=== PATIENT | female | born 1980 | race Caucasian/White ===

== ENCOUNTER 2020-12-19 19:12 | Inpatient (IN) | payer MEDICAID, SELFPAY ==
[2020-12-19] VITALS (8 sets, daily range): BP systolic 161–240; BP diastolic 109–124; PULSE 72–97; RESP 14–24; TEMP 35.7–36.8; O2SAT 97–100; BMI 34.1
--- NOTE | ~2020-12-19 | CT_ITS ---
EXAMINATION: CT abdomen pelvis w con EXAM DATE: 12/19/2020 20:45 INDICATION: Mid abdominal pain. TECHNIQUE: Spiral CT of the abdomen and pelvis was performed following intravenous injection of 100 m L Omnipaque 350. Axial, coronal and sagittal images were reviewed. The dose-length product (DLP) fo r this examination was 1110.51 mGy-cm. The exposure was tailored according to patient size (auto mA exposure control), and iterative reconstruction (ASIR) was used as additional dose reduction techniqu e. There is no prior study for comparison. FINDINGS: Extensive peripancreatic inflammation. The tail of pancreas has some lower density, more ed ematous than the other portions. Inflammation extends into the ojri hepatis. Minor pancreatic duct o f the uncinate process appears mildly dilated. Gallbladder is unremarkable. Spleen, adrenal glands, l iver are unremarkable. Portal and splenic veins are patent. Kidneys enhance symmetrically. There i s no hydronephrosis. The uterus and ovaries are unremarkable, no adnexal mass. Tubal ligation clips . The bladder is unremarkable. There is no retroperitoneal or pelvic lymphadenopathy. The appendix is normal. The stomach and small bowel are unremarkable. There is expected amount of c olonic stool. No free intraperitoneal gas. The heart is normal in size. There are no pericardial or pleural effusions. The lung bases are unremarkable. The bones are unremarkable. IMPRESSION: 1. Severe peripancreatic fat stranding, acute pancreatitis. Reviewed, dictated and finalized at location [facility]. [facility]
--- NOTE | 2020-12-19 19:20 | PC.NURSE ---
Patient states I can't pee right now I am too light headed and it hurts too bad to pee . She refuses to allow straight cath at this time.
[2020-12-19 19:48] LABS: Basophils Absolute Auto 0.1 K/mm3 (0.0-0.1); Basophils Percent Auto 0.4 % (0.2-1.2); Eosinophils Percent Auto 0.1 % (0-4.4); Hematocrit 54.4 % (37.0-47.0); Hemoglobin 18.8 g/dL (12.0-15.0); Immature Granulocyte Absolute 0.51 K/mm3 (0.00-0.031); Immature Granulocyte Percent A 2.1 % (0-0.5); Lymphocytes Absolute Auto 1.67 K/mm3 (0.9-3.2); Lymphocytes Percent Auto 6.7 % (18.3-44.2); Mean Corpuscular HGB Conc 34.6 g/dl (32-36); Mean Corpuscular Volume 92.7 fl (80-100); Mean Platelet Volume 10.4 fl (7.4-10.4); Monocytes Absolute Auto 0.9 K/mm3 (0.1-0.6); Monocytes Percent Auto 3.7 % (2.6-8.5); Neutrophils Absolute Auto 21.6 K/mm3 (1.3-6.7); Platelet Count Result 383 k/mm3 (150-375); Red Blood Count 5.87 M/mm3 (4.2-5.4); Red Cell Distribution Width 13.5 % (11.5-14.5); White Blood Count 24.9 K/mm3 (4.5-10.0)
[2020-12-19] MEDS: MORPHINE SULFATE (*CRX) 4 MG/ML INJ IV PUSH ×2 (19:52→23:32)
[2020-12-19] MEDS: ONDANSETRON INJ 4 MG/2 ML VIAL IV PUSH (19:52)
[2020-12-19] MEDS: SODIUM CHLORIDE 0.9% IV 1,000 ML 999 ML IV CONT (19:52)
--- NOTE | 2020-12-19 19:54 | PC.NURSE ---
Patient was asked to provide urine. She tells me I can't . Still refuses straight cath. Patient aware urine test is needed for proper evaluation and treatment.
[2020-12-19 19:57] LABS: INR 0.9; Prothrombin Time 12.4 Seconds (11.1-14.7)
[2020-12-19 19:58] LABS: Partial Thromboplastin Time 29.4 SECONDS (22.3-36.8)
--- NOTE | 2020-12-19 19:59 | PC.NURSE ---
EDP notified that urine has not been collected and that the patient will not allow a straight cath to be done. Orders obtained for [facility]CG to be performed so that imaging can be performed. Lab notified of add on for this lab and CT is notified that this order has been placed.
[2020-12-19 20:00] LABS: Alanine Aminotransferase 22 U/L (4-35); Albumin Level 4.7 g/dL (3.5-5.1); Alkaline Phosphatase 138 U/L (38-126); Anion Gap 11 mmol/L (8-16); Aspartate Amino Transferase 28 U/L (14-36); Bilirubin,Total 0.9 mg/dL (0.2-1.3); Blood Urea Nitrogen 14 mg/dL (7-17); Calcium 9.7 mg/dL (8.4-10.2); Carbon Dioxide 30 mmol/L (22-30); Chloride 93 mmol/L (98-107); Estimated CRCL calculation 98 ml/min; Estimated Glomerular Filt Rate > 60; Glucose 140 mg/dL (65-105); Potassium 3.7 mmol/L (3.4-5.0); Sodium 134 mmol/L (137-145)
[2020-12-19 20:10] LABS: Troponin I < 0.012 ng/mL (0.000-0.034)
--- NOTE | 2020-12-19 20:12 | PC.NURSE ---
PT STATES SHE IS UNABLE TO GIVE URINE SAMPLE AT THIS TIME. RN NOTIFIED.
[2020-12-19 20:14] LABS: Lactic Acid Reflex 1.9 mmol/L (0.7-2.1)
[2020-12-19 20:19] LABS: Lipase 4839 U/L (23-300)
[2020-12-19 20:27] LABS: Beta HCG Quantitative < 2.39 mIU/ML
--- NOTE | 2020-12-19 20:35 | PC.NURSE ---
Patient states she is still unable to provide urine. refuses straight cath
--- NOTE | 2020-12-19 20:37 | ED.GENADULT ---
HPI - General Adult General Chief complaint: Abdominal Pain Stated complaint: abd pain Time Seen by Provider: 12/19/20 19:32 History of Present Illness HPI narrative: Patient 40-year-old female who presents the emergency department with chief complaint of epigastric pain. Patient states pain is been going on for the last 24 hours states that it does radiate to her back reports she is had some nausea and vomiting with this as well. The patient denies diarrhea denies prior surgical history. Patient states the pain is worse with movement Related Data Home Medications Medication Instructions Recorded Confirmed No Home Medications 12/19/20 12/19/20 Allergies Allergy/AdvReac Type Severity Reaction Status Date / Time Penicillins Allergy Rash Verified 12/19/20 19:17 Review of Systems Review of Systems: Narrative: A 10 system review of systems was completed on the patient and is negative except for what is stated in the HPI. Nursing and ancillary documentation was reviewed. PMFSH Comments Patient denies significant past medical history Reports history of tubal ligation Social history the patient denies illicit drug use Exam Narrative: Exam Narrative: GENERAL: Well-appearing, well-nourished, and in no acute distress. HEAD: Normocephalic, atraumatic. EYES: PERRLA and EOMI. ENT: Nares clear, no rhinorrhea or epistaxis. Mucous membranes moist. NECK: Supple. CHEST: Clear to auscultation. No respiratory distress. HEART: Regular rate and rhythm. No murmur heard. Normal peripheral pulses. ABDOMEN: Soft, tender to palpation in the epigastric region, nondistended, normal active bowel sounds. EXTREMITIES: Normal range of motion. No edema. SKIN: Warm, dry, no rash. NEURO: No focal deficits. Alert and oriented x3. PSYCH: Normal mood and affect. Course Vital Signs Vital signs: Vital Signs Temperature 35.7 C L 12/19/20 19:15 Pulse Rate 97 12/19/20 19:15 Respiratory Rate 20 12/19/20 19:15 Blood Pressure 188/124 H 12/19/20 19:15 Pulse Oximetry 100 12/19/20 19:15 Temperature 36.3 C L 12/19/20 19:38 Pulse Rate 79 12/19/20 19:38 Respiratory Rate 24 H 12/19/20 19:38 Blood Pressure 211/120 H 12/19/20 19:38 Pulse Oximetry 100 12/19/20 19:38 Medical Decision Making Vital Signs Vital Signs: Vital Signs Temperature 35.7 C L 12/19/20 19:15 Pulse Rate 97 12/19/20 19:15 Respiratory Rate 20 12/19/20 19:15 Blood Pressure 188/124 H 12/19/20 19:15 Pulse Oximetry 100 12/19/20 19:15 Temperature 36.3 C L 12/19/20 19:38 Pulse Rate 79 12/19/20 19:38 Respiratory Rate 24 H 12/19/20 19:38 Blood Pressure 211/120 H 12/19/20 19:38 Pulse Oximetry 100 12/19/20 19:38 Lab Data Result diagrams: 12/19/20 19:40 12/19/20 19:40 Labs: Lab Results 12/19/20 12/19/20 12/19/20 Range/Units 19:40 19:40 19:40 WBC 24.9 H (4.5-10.0) K/mm3 RBC 5.87 H (4.2-5.4) M/mm3 Hgb 18.8 H (12.0-15.0) g/dL Hct 54.4 H (37.0-47.0) % MCV 92.7 (80-100) fl MCH 32.0 (26-34) pg MCHC 34.6 (32-36) g/dl RDW 13.5 (11.5-14.5) % Plt Count 383 H (150-375) k/mm3 MPV 10.4 (7.4-10.4) fl Immature Gran % (Auto) 2.1 H (0-0.5) % Neut % (Auto) 87.0 H (45.5-73.1) % Lymph % (Auto) 6.7 L (18.3-44.2) % [place] % (Auto) 3.7 (2.6-8.5) % Eos % (Auto) 0.1 (0-4.4) % Baso % (Auto) 0.4 (0.2-1.2) % Lymph # (Auto) 1.67 (0.9-3.2) K/mm3 [place] # (Auto) 0.9 H (0.1-0.6) K/mm3 Eos # (Auto) 0.0 (0-0.3) K/mm3 Baso # (Auto) 0.1 (0.0-0.1) K/mm3 Abs Immat Gran (auto) 0.51 H (0.00-0.031) K/mm3 Absolute Neuts (auto) 21.6 H (1.3-6.7) K/mm3 Absolute Nucleated RBC 0.0 (0.0-0.012) K/mm3 Nucleated RBC % 0.0 (0.0-0.2) % PT 12.4 (11.1-14.7) Seconds INR 0.9 APTT 29.4 (22.3-36.8) SECONDS Sodium 134 L (137-145) mmol/L Potassium 3.7 (3.4-5.0) mmol/L Chloride 93 L (98-10
--- NOTE | 2020-12-19 21:15 | PM.IMHP ---
H&P: HPI History of Present Illness Date/Time: 12/19/20 21:15. The patient was seen and evaluated in the emergency department. Chief Complaint: Abdominal pain. Narrative: This is a 40-year-old female smoker with no reported medical history who presented to the emergency department earlier today via private vehicle with complaints of abdominal pain. She reports the abrupt onset of diffuse abdominal pain sometime yesterday which she has a difficult time describing although it has been severe and constant. On exam it seems to localize more in the epigastrium and left upper quadrant. She gives no alleviating factors and reports that movement and palpation make the pain worse. It does radiate somewhat through to the back and is associated with nausea and vomiting. She was found to have acute pancreatitis and with further questioning she endorses binge drinking recently after breaking up with her boyfriend, although she does not qualify much alcohol she consumes and she was not forthcoming with how long she has been drinking. No prior history of pancreatitis. She also denies history of peptic ulcers and gallbladder disease. No known history of hypertension however her blood pressures have been in the 180s to even low 200 systolic, however they do improve with pain medication. She denies headache, vertigo, focal weakness, paresthesias, fever, chest pain, shortness of breath, hematemesis, and diarrhea. In fact she reports not having a bowel movement for the past couple of days. Review of Systems Review of Systems: Narrative: Twelve systems were reviewed with pertinent positives and negatives as per HPI. No fever or chills although she has had some sweats. She denies recent cold and flu symptoms. No known exposure to those positive for COVID-19. She denies chest pain, pleuritic pain, and palpitations. No dysuria. She has never had signs or symptoms of alcohol withdrawal. She denies harmful thoughts. No blurry vision, paresthesias, vertigo, auditory visual changes, or focal weakness. Except as documented, all other systems were reviewed and are negative. [facility] Past Medical History Medical History (Updated 12/19/20 @ 22:47 by Anali Gannon PA-C) Tobacco dependence Surgical History Surgical History (Updated 12/19/20 @ 22:41 by Anali Gannon PA-C) History of tubal ligation Family History Family History Other Patient denies significant medical history Social History Social History (Updated 12/19/20 @ 22:43 by Anali Gannon PA-C) Social History: The patient lives in [place], [place]. She has been staying in a motel around the hospital here for the last several days, at least from what I can gather. She has at least 1 child that she mentioned. I believe she said that she was unemployed. She smokes a pack of cigarettes per day. She has been binge drinking but does not qualify or quantify as detailed above. Denies illicit substance use. She designates her mother as her surrogate decision maker and she wishes to be a full code. Meds Home Medications and Allergies Home Medications Medication Instructions Recorded Confirmed Type No Home Medications 12/19/20 12/19/20 History Allergies Allergy/AdvReac Type Severity Reaction Status Date / Time Penicillins Allergy Rash Verified 12/19/20 19:17 Vital Signs Vital Signs - 24 hr 12/19/20 19:15 12/19/20 19:38 12/19/20 20:02 Temperature 96.3 F L 97.4 F L Pulse Rate 97 79 76 Respiratory Rate 20 24 H 18 Blood Pressure 188/124 H 211/120 H 240/115 H Pulse Oximetry 100 100 97 12/19/20 20:32 12/19/20 21:32 Temperature 98.2 F Pulse Rate 84 72 Respiratory Rate 20 16 Blood Pressure 233/112 H 225/116 H Pulse Oximetry 100 Exam Narrative: Exam Narrative: General: Acutely ill-appearing female supine in bed. She is very irritable about having to be admitted and that her 11-ye
--- NOTE | 2020-12-19 21:54 | PC.NURSE ---
Patient asked to provide urine. She states she can not at this time
[2020-12-19] MEDS: HYDROmorphone HCL INJ (*CRX) 1 MG/ML SYR IV PUSH (21:59)
--- NOTE | 2020-12-19 22:53 | PC.NURSE ---
spoke to KOJO Rodriguez regarding patients elevated blood pressure. He states that ED physician is aware. Will attempt to obtain UA upon arrival.
[2020-12-19] MEDS: THIAMINE HCL 200 MG/2 ML VIAL 100 MG IV PUSH (22:58)
--- NOTE | 2020-12-19 23:12 | ADMGEN ---
This patient, Shelli Benavides, was admitted to Medical Room 347-. Patient/family oriented to hospital policies and general routines including ID bracelet, bed and alarms, visiting hours, pain management, procedures, bathroom and other care routines, personal items, smoking policy, room service/diet, and visiting hours. Information on how to activate the Rapid Response Team has been discussed. Patient/Family are encouraged to report perceived risks to care and to ask questions if they do not understand what they are told or what they should do.
[2020-12-19] MEDS: SODIUM CHLORIDE 0.9% IV 1,000 ML 200 ML IV CONT (23:32)
[2020-12-19 23:48] LABS: Magnesium 1.8 mg/dL (1.6-2.3); Triglycerides 173 mg/dL (<150)
[2020-12-20] VITALS (9 sets, daily range): BP systolic 148–178; BP diastolic 83–115; PULSE 94–117; RESP 12–24; TEMP 36.8–37.7; O2SAT 92–97
--- NOTE | 2020-12-20 00:10 | PC.NURSE ---
patient known to smoke cigarettes. Informed patient that nicotine patch was available if she felt she needed it at this time. Patient declined.
[2020-12-20] MEDS: MORPHINE SULFATE (*CRX) 4 MG/ML INJ IV PUSH ×3 (02:16→14:23)
[2020-12-20] MEDS: LORazepam INJ (*CRX) 2 MG/ML VIAL 1 MG IV PUSH (02:17)
[2020-12-20 02:54] LABS: Add Urine Microscopic? YES; Appearance Urine Clear (Clear); Bacteria Urine Trace /hpf; Bilirubin Urine Negative (Negative); Blood Urine 3+ (Negative); Color Urine Yellow (Yellow); Glucose Urine UA 1+ mg/dL (Negative); Ketones Urine Negative (Negative); Leukocyte Esterase Ur Negative LEU/UL (Negative); Mucus Urine Rare /lpf; Nitrate Urine Negative (Negative); Protein Urine 2+ mg/dL (Negative); RBC Urine >75 /hpf (0-2); Squamous Epithelial Cell Urine Moderate /hpf (Few); Urobilinogen Urine Negative mg/dL (<2.0); WBC Urine 0-3 /hpf
[2020-12-20 03:14] LABS: Specific Grav Ur > 1.060 (1.001-1.035)
[2020-12-20] MEDS: SODIUM CHLORIDE 0.9% IV 1,000 ML 200 ML IV CONT (05:05)
[2020-12-20 06:09] LABS: Hematocrit 53.8 % (37.0-47.0); Mean Corpuscular HGB Conc 33.5 g/dl (32-36); Mean Corpuscular Hemoglobin 30.8 pg (26-34); Mean Platelet Volume 10.5 fl (7.4-10.4); Platelet Count Result 335 k/mm3 (150-375); Red Blood Count 5.85 M/mm3 (4.2-5.4); Red Cell Distribution Width 13.4 % (11.5-14.5); White Blood Count 30.7 K/mm3 (4.5-10.0)
[2020-12-20 07:17] LABS: Band Neutrophils Percent 3 % (0-6); Basophils Percent Manual 1 % (0-1); Monocytes Absolute Manual 0.92 K/mm3 (0.1-0.90); Monocytes Percent Manual 3 % (3-9); Neutrophils Absolute Manual 29.16 K/mm3 (1.7-7.2); Neutrophils Percent Manual 92 % (46-73); Platelet Estimate Adequate (Adequate); Total Cells Counted 100
[2020-12-20 07:57] LABS: Alanine Aminotransferase 15 U/L (4-35); Albumin Level 3.8 g/dL (3.5-5.1); Alkaline Phosphatase 106 U/L (38-126); Anion Gap 10 mmol/L (8-16); Aspartate Amino Transferase 23 U/L (14-36); Bilirubin,Total 0.9 mg/dL (0.2-1.3); Blood Urea Nitrogen 12 mg/dL (7-17); Calcium 8.6 mg/dL (8.4-10.2); Carbon Dioxide 23 mmol/L (22-30); Chloride 100 mmol/L (98-107); Estimated CRCL calculation 124 ml/min; Estimated Glomerular Filt Rate > 60; Glucose 121 mg/dL (65-105); Potassium 3.5 mmol/L (3.4-5.0); Sodium 133 mmol/L (137-145)
[2020-12-20 08:06] LABS: Lipase 3703 U/L (23-300)
[2020-12-20] MEDS: THIAMINE HCL 200 MG/2 ML VIAL 100 MG IV PUSH (08:14)
[2020-12-20] MEDS: hydrALAZINE HCL 20 MG/ML VIAL 10 MG IV PUSH (11:17)
--- NOTE | 2020-12-20 13:38 | PM.IMPN ---
Progress Note: A&P Assessment and Plan (1) Acute pancreatitis: Qualifiers: Acute pancreatitis complication: unspecified Pancreatitis type: unspecified pancreatitis type Qualified Code(s): K85.90 - Acute pancreatitis without necrosis or infection, unspecified Code(s): K85.90 - Acute pancreatitis without necrosis or infection, unspecified Status: Acute Assessment and Plan: she has severe pancreatitis with lipase elevated at [address] a/p showed severe peripancreatic fat stranding and extensive peripancreatic inflammation. Lipase improved to 3703 today. Her pain is improved. most likely etiology for this is alcohol abuse. Triglycerides slightly elevated at 173 but unlikely to be contributing. gallstone etiology seems less likely as LFTs are within normal limits. Continue IV fluid rehydration Advance to clear liquids. Analgesics and antiemetics available as needed Trend lipase (2) Hypertensive urgency: Code(s): I16.0 - Hypertensive urgency Status: Acute Assessment and Plan: Her blood pressure was elevated upon arrival with highest 240/115. It has improved at appropriate rate. BP this morning was 151/103. She received one time dose of IV hydralazine this morning and BP was 155/83 following. She is asymptomatic. Expect further improvement upon improvement of pain. Will begin 5 mg amlodipine daily. Monitor BP trends closely. Adjust antihypertensive regimen as needed (3) Leukocytosis: Code(s): D72.829 - Elevated white blood cell count, unspecified Status: Acute Assessment and Plan: White count was 24.9 upon presentation. This is likely related to acute pancreatitis. White count has slightly increased to 30.7 today, however clinically she appears to be improving. Monitor CBC closely and follow trend. Can consider repeat imaging based on progression to ensure no pancreatic hemorrhage or necrosis. (4) Polycythemia: Code(s): D75.1 - Secondary polycythemia Status: Acute Assessment and Plan: Hemoglobin is 18.8 upon presentation hematocrit 54.4. No prior labs are available to establish baseline. This may be relative due to hemoconcentration given dehydration. Electrolytes are stable, renal function appropriate LFTs within normal limits. She is not hypoxic. She does have an extensive smoking history Continue IV fluid rehydration. Will obtain ABG to evaluate respiratory status Apnea link tonight Monitor CBC (5) Alcohol abuse: Code(s): F10.10 - Alcohol abuse, uncomplicated Status: Acute Assessment and Plan: She does not quantify how much she drinks. She reports she had just been binge drinking due to a recent break-up with her boyfriend. she denies history of alcohol withdrawal symptoms. CIWA score is 0, highest score has been 4. Continue CIWA protocol Thiamine and folic acid supplementation (6) Tobacco dependence: Code(s): F17.200 - Nicotine dependence, unspecified, uncomplicated Status: Acute Assessment and Plan: She reports smoking 1 pack per day. She declines need for nicotine patch. Continue to encourage smoking cessation Subjective Date/time seen: 12/20/20 13:38 Interval history: Date of service: 12/20/2020 Shelli Benavides is a 40-year-old female with history of alcohol and tobacco dependence who is seen in follow-up for acute pancreatitis. She is feeling better today and reports her abdominal pain is improving. Currently, she is endorsing epigastric pain rated 4-5/10. she denies nausea or vomiting. She is very hungry and is requesting to eat and get something to drink. She denies fever, chills, dizziness, lightheadedness. She denies urinary symptoms. She has just started her menstrual cycle. She had a regular BM 1 day ago. No diarrhea. she denies shortness of breath, cough, chest pain, or palpitations. She denies headache or visual
[2020-12-20] MEDS: HYDROcodone/acetaminophen (*CRX) 5-325 MG TABLET 1 TAB PO (16:42)
[2020-12-20] MEDS: SODIUM CHLORIDE 0.9% IV 1,000 ML 100 ML IV CONT (16:43)
[2020-12-20 16:52] LABS: Alveolar/Arterial O2 Gradient 33.1 mmHg; Base Excess ABG 1.8 mEq/l (+/-2.0); Fractional Inspired Oxygen 21 %; HCO3 ABG 26.5 mEq/l (22.0-26.0); Oxygen Content ABG 23.4 %vol (16.0-22.0); Oxygen Saturation ABG 93.5 % (95.0-100.0); Oxyhemoglobin 92.3 % THb (90.0-100.0); PCO2 ABG 41.9 mmHg (35.0-45.0); PO2 ABG 66.5 mmHg (80.0-100.0); PO2 FiO2 Ratio Arterial Blood 3.17 %; Total Hemoglobin 18.1 g/dL (12.0-18.0); pH ABG 7.419 (7.350-7.450)
[2020-12-20 16:53] LABS: Device ROOM AIR; Modified Allen's Test Pass; Site Drawn LEFT RADIAL
--- NOTE | 2020-12-20 23:26 | PCRCNOTE ---
pt refuses, has stomach pain, will not have apnea link now
[2020-12-21] MEDS: HYDROcodone/acetaminophen (*CRX) 5-325 MG TABLET 1 TAB PO ×3 (00:53→14:57)
[2020-12-21 05:44] VITALS: BP 145/90; PULSE 102; RESP 12; TEMP 37.1; O2SAT 92
[2020-12-21 05:44] LABS: Basophils Absolute Auto 0.2 K/mm3 (0.0-0.1); Basophils Percent Auto 0.7 % (0.2-1.2); Eosinophils Percent Auto 0.1 % (0-4.4); Hematocrit 47.7 % (37.0-47.0); Hemoglobin 15.8 g/dL (12.0-15.0); Immature Granulocyte Absolute 0.81 K/mm3 (0.00-0.031); Immature Granulocyte Percent A 2.9 % (0-0.5); Lymphocytes Absolute Auto 2.18 K/mm3 (0.9-3.2); Lymphocytes Percent Auto 7.9 % (18.3-44.2); Mean Corpuscular HGB Conc 33.1 g/dl (32-36); Mean Corpuscular Hemoglobin 30.6 pg (26-34); Mean Corpuscular Volume 92.4 fl (80-100); Mean Platelet Volume 10.5 fl (7.4-10.4); Monocytes Absolute Auto 1.8 K/mm3 (0.1-0.6); Monocytes Percent Auto 6.5 % (2.6-8.5); Neutrophils Absolute Auto 22.7 K/mm3 (1.3-6.7); Neutrophils Percent Auto 81.9 % (45.5-73.1); Platelet Count Result 290 k/mm3 (150-375); Red Blood Count 5.16 M/mm3 (4.2-5.4); Red Cell Distribution Width 13.7 % (11.5-14.5); White Blood Count 27.7 K/mm3 (4.5-10.0)
[2020-12-21 05:54] LABS: Alanine Aminotransferase 9 U/L (4-35); Albumin Level 3.1 g/dL (3.5-5.1); Alkaline Phosphatase 87 U/L (38-126); Anion Gap 5 mmol/L (8-16); Aspartate Amino Transferase 16 U/L (14-36); Bilirubin,Total 1.1 mg/dL (0.2-1.3); Blood Urea Nitrogen 9 mg/dL (7-17); Carbon Dioxide 31 mmol/L (22-30); Chloride 97 mmol/L (98-107); Estimated CRCL calculation 126 ml/min; Estimated Glomerular Filt Rate > 60; Glucose 103 mg/dL (65-105); Lipase 578 U/L (23-300); Magnesium 1.8 mg/dL (1.6-2.3); Potassium 3.5 mmol/L (3.4-5.0); Sodium 133 mmol/L (137-145)
[2020-12-21] MEDS: THIAMINE HCL 100 MG TABLET PO (08:25)
[2020-12-21] MEDS: FOLIC ACID 1 MG TABLET PO (08:25)
[2020-12-21] MEDS: amLODIPine BESYLATE 5 MG TABLET PO (08:25)
[2020-12-21] MEDS: SODIUM CHLORIDE 0.9% IV 1,000 ML 100 ML IV CONT (08:26)
[2020-12-21] MEDS: ENOXAPARIN 40 MG/0.4 ML SYRINGE SUB-Q (10:08)
[2020-12-21 14:00] VITALS: BP 152/71; PULSE 106; RESP 18; TEMP 36.6; O2SAT 96
--- NOTE | 2020-12-21 15:12 | PM.IMPN ---
Progress Note: A&P Assessment and Plan (1) Acute pancreatitis: Qualifiers: Acute pancreatitis complication: unspecified Pancreatitis type: unspecified pancreatitis type Qualified Code(s): K85.90 - Acute pancreatitis without necrosis or infection, unspecified Code(s): K85.90 - Acute pancreatitis without necrosis or infection, unspecified Status: Acute Assessment and Plan: she has severe pancreatitis with lipase elevated at [address] a/p showed severe peripancreatic fat stranding and extensive peripancreatic inflammation. Her pain is improved. most likely etiology for this is alcohol abuse. Triglycerides slightly elevated at 173 but unlikely to be contributing. gallstone etiology seems less likely as LFTs are within normal limits. Lipase improved to 578 today. She is tolerating clear liquids. Continue gentle IV fluid rehydration Advance to full liquids. Advance as tolerated. Analgesics and antiemetics available as needed Trend lipase (2) Hypertensive urgency: Code(s): I16.0 - Hypertensive urgency Status: Acute Assessment and Plan: Her blood pressure was elevated upon arrival with highest 240/115. It improved at appropriate rate. BP this morning was 151/103. She received one time dose of IV hydralazine on 12/20 and BP improved. She is asymptomatic. Expect further improvement upon improvement of pain. BP better controlled today in the 140s-150s systolic. Continue 5 mg amlodipine daily. Monitor BP trends closely. Adjust antihypertensive regimen as needed (3) Leukocytosis: Code(s): D72.829 - Elevated white blood cell count, unspecified Status: Acute Assessment and Plan: White count was 24.9 upon presentation and increased to 30.7 This is likely related to acute pancreatitis. WBC is 27.7 today and clinically she appears to be improving. Monitor CBC closely and follow trend. Can consider repeat imaging based on progression to ensure no pancreatic hemorrhage or necrosis. (4) Polycythemia: Code(s): D75.1 - Secondary polycythemia Status: Acute Assessment and Plan: Hemoglobin 18.8 upon presentation hematocrit 54.4. No prior labs are available to establish baseline. This may be relative due to hemoconcentration given dehydration. Electrolytes are stable, renal function appropriate, LFTs within normal limits. She is not hypoxic. She does have an extensive smoking history. ABG evaluated which showed mild hypoxemia. H&H improving following IV fluids, suggesting hemoconcentration as most likely etiology. Continue IV fluid rehydration. ÓSCAR could be contributing. Apnea link ordered but pt refused. She will need outpatient sleep study. Monitor CBC (5) Alcohol abuse: Code(s): F10.10 - Alcohol abuse, uncomplicated Status: Acute Assessment and Plan: She does not quantify how much she drinks. She reports she had just been binge drinking due to a recent break-up with her boyfriend. she denies history of alcohol withdrawal symptoms. CIWA score is 0, highest score has been 4. Continue CIWA protocol Thiamine and folic acid supplementation (6) Tobacco dependence: Code(s): F17.200 - Nicotine dependence, unspecified, uncomplicated Status: Acute Assessment and Plan: She reports smoking 1 pack per day. She declines need for nicotine patch. Continue to encourage smoking cessation Subjective Date/time seen: 12/21/20 15:12 Interval history: Date of service: 12/21/2020 Shelli Benavides is a 40-year-old female with history of alcohol and tobacco dependence who is seen in follow-up for acute pancreatitis. She is feeling better today. She endorses 4/10 epigastric pain. Denies radiation to back. She is tolerating clear liquids but notes she really doesn't like any of the food so has not eaten much of it. Denies nausea or vomiting. Last BM 2 days ago. Denies fever, chi
--- NOTE | 2020-12-21 18:22 | PC.NURSE ---
Patient signed out AMA; presents as argumentative to staff. lending activities supervisor and security notified. Patient insists that a [employer] INSPECTOR administered vicoden to her. RN requested assist from another RN to witness interaction r/t signing out AMA. Patient continued to argue that someone in maroon scrubs gave me vicoden. When second nurse arrived, patient stated NO! I told you it wasn't her, I said MAROON scrubs! The second RN verified that she had given the pain medication at which point the patient became argumentative and belligerent. Risks were explained to patient prior to her signing AMA papers.
--- NOTE | 2020-12-22 12:10 | PM.DS ---
DS: Admitting Diagnosis Admitting Diagnosis Admitting Diagnosis: Pancreatitis DS: Discharge Diagnosis Discharge Diagnosis (1) Acute pancreatitis: Qualifiers: Acute pancreatitis complication: unspecified Pancreatitis type: unspecified pancreatitis type Qualified Code(s): K85.90 - Acute pancreatitis without necrosis or infection, unspecified Code(s): K85.90 - Acute pancreatitis without necrosis or infection, unspecified Status: Acute Assessment and Plan: she has severe pancreatitis with lipase elevated at [address] a/p showed severe peripancreatic fat stranding and extensive peripancreatic inflammation. Her pain is improved. most likely etiology for this is alcohol abuse. Triglycerides slightly elevated at 173 but unlikely to be contributing. gallstone etiology seems less likely as LFTs are within normal limits. Lipase improved to 578. She was tolerating full liquid diet and pain had improved. Continue gentle IV fluid rehydration Advance to full liquids. Advance as tolerated. Analgesics and antiemetics available as needed Trend lipase (2) Hypertensive urgency: Code(s): I16.0 - Hypertensive urgency Status: Acute Assessment and Plan: Her blood pressure was elevated upon arrival with highest 240/115. It improved at appropriate rate. BP this morning was 151/103. She received one time dose of IV hydralazine on 12/20 and BP improved. She is asymptomatic. Expect further improvement upon improvement of pain. BP better controlled today in the 140s-150s systolic. Continue 5 mg amlodipine daily. Monitor BP trends closely. Adjust antihypertensive regimen as needed (3) Leukocytosis: Code(s): D72.829 - Elevated white blood cell count, unspecified Status: Acute Assessment and Plan: White count was 24.9 upon presentation and increased to 30.7 This is likely related to acute pancreatitis. WBC is 27.7 today and clinically she appears to be improving. Monitor CBC closely and follow trend. Can consider repeat imaging based on progression to ensure no pancreatic hemorrhage or necrosis. (4) Polycythemia: Code(s): D75.1 - Secondary polycythemia Status: Acute Assessment and Plan: Hemoglobin 18.8 upon presentation hematocrit 54.4. No prior labs are available to establish baseline. This may be relative due to hemoconcentration given dehydration. Electrolytes are stable, renal function appropriate, LFTs within normal limits. She is not hypoxic. She does have an extensive smoking history. ABG evaluated which showed mild hypoxemia. H&H improving following IV fluids, suggesting hemoconcentration as most likely etiology. Continue IV fluid rehydration. ÓSCAR could be contributing. Apnea link ordered but pt refused. She will need outpatient sleep study. Monitor CBC (5) Alcohol abuse: Code(s): F10.10 - Alcohol abuse, uncomplicated Status: Acute Assessment and Plan: She does not quantify how much she drinks. She reports she had just been binge drinking due to a recent break-up with her boyfriend. she denies history of alcohol withdrawal symptoms. CIWA score is 0, highest score has been 4. Continue CIWA protocol Thiamine and folic acid supplementation (6) Tobacco dependence: Code(s): F17.200 - Nicotine dependence, unspecified, uncomplicated Status: Acute Assessment and Plan: She reports smoking 1 pack per day. She declines need for nicotine patch. Continue to encourage smoking cessation DS: Summary Hospital Course Reason for hospitalization: Epigastric pain Hospital Course: Date of admission: 12/19/20 Date of departure: 12/21/20 Shelli Benavides is a noncompliant 40 year old female with a history of alcohol and tobacco abuse who presented to the ED on 12/19/20 with complaints of abdominal pain following an alcohol binge. Upon arrival, her BP was markedly elevated, she
== END 2020-12-21 18:45 | disposition left against medical advice (07) | DRG 282 ==
LOC: ANHED 21:24 → ANH3MED 21:31
PROVIDERS: Physician Assistant; Admitting Provider Internal Medicine; Emergency Provider Emergency Medicine; Visit Provider Physician Assistant
DX: K85.20 Alcohol induced acute pancreatitis without necrosis or infection (principal); I16.0 Hypertensive urgency; D72.829 Elevated white blood cell count, unspecified; D75.1 Secondary polycythemia; E86.0 Dehydration; G47.33 Obstructive sleep apnea (adult) (pediatric); F10.10 Alcohol abuse, uncomplicated; F17.210 Nicotine dependence, cigarettes, uncomplicated
CPT/HCPCS: 36415; 36600; 74177; 80053; 81001; 82805; 83605; 83690; 83735; 84478; 84484; 84702; 85025; 85610; 85730; 96361; 96374; 96375; 99285; A9270; J0360; J1170; J1650; J2060; J2270; J2405; J3411; J7030; Q9967